=== PATIENT | male | born 1970 | race Caucasian/White ===

== ENCOUNTER 2017-10-26 19:11 | Emergency (ER) | payer OTHER | END 2017-10-26 22:46 | disposition home or self-care (01) | LOC: FTE 22:46 | DX: T16.1XXA Foreign body in right ear, initial encounter (principal); K42.9 Umbilical hernia without obstruction or gangrene; X58.XXXA Exposure to other specified factors, initial encounter; Y92.9 Unspecified place or not applicable | CPT/HCPCS: 99283; Z7502 ==

== ENCOUNTER 2019-01-14 01:22 | Emergency (ER) | payer SELFPAY, OTHER | END 2019-01-14 06:40 | disposition home or self-care (01) | LOC: FTE 01:22 | DX: J40 Bronchitis, not specified as acute or chronic (principal); J32.9 Chronic sinusitis, unspecified | CPT/HCPCS: 99283 ==